=== PATIENT | female | born 1965 | race Asian ===

== ENCOUNTER 2016-09-06 12:49 | Emergency (ER) | payer MEDICAID, OTHER ==
[~2016-09-06] VITALS: Ht 154.9 cm; Wt 78.2 kg
[2016-09-06] MEDS ORDERED: IPRATROPIUM BROMIDE 0.5 MG/2.5 ML NEB SOLUTION NEB ONE (15:30)
[2016-09-06] MEDS ORDERED: ALBUTEROL SULFATE 2.5 MG/0.5 ML NEB SOLUTION NEB ONE (15:30)
[2016-09-06] MEDS ORDERED: ALBUTEROL SULFATE HFA 90 MCG/PUFF 8 GM INHALER IH ONE (17:00)
[2016-09-06 18:42] VITALS: BP 170/102
== END 2016-09-06 18:43 | disposition home or self-care (01) ==
LOC: EMS 12:56
DX: S05.12XA Contusion of eyeball and orbital tissues, left eye, initial encounter (principal); J45.901 Unspecified asthma with (acute) exacerbation; I10 Essential (primary) hypertension; W19.XXXA Unspecified fall, initial encounter; Y93.89 Activity, other specified; Y92.89 Other specified places as the place of occurrence of the external cause; Y99.8 Other external cause status
CPT/HCPCS: 70486; 94640; 99284; J7613; J3535

== ENCOUNTER 2017-11-26 20:34 | Inpatient (IN) | payer MEDICAID ==
[~2017-11-26] VITALS: Ht 154.9 cm; Wt 83.7 kg
[2017-11-26 21:03] LABS: BASOPHILS % (AUTO) 0.9 % (0.0-2.0); EOSINOPHILS % (AUTO) 4.1 % (1.0-6.0); HEMOGLOBIN 11.7 g/dL (12.0-16.0); LYMPHOCYTES # (AUTO) 3.5 K/uL (1.0-4.8); LYMPHOCYTES % (AUTO) 36.7 % (22.0-44.0); MEAN CORPUSCULAR HEMOGLOBIN 24.8 pg (26.0-34.0); MEAN CORPUSCULAR HGB CONC 32.5 G/dL (31.0-37.0); MEAN CORPUSCULAR VOLUME 76 fL (80-100); MONOCYTES # (AUTO) 0.6 K/uL (0.1-1.0); MONOCYTES % (AUTO) 6.2 % (2.0-9.0); NEUTROPHILS % (AUTO) 52.1 % (40.0-70.0); PLATELET COUNT (AUTO) 364 K/uL (150-450); RED BLOOD CELL COUNT(AUTO) 4.72 MIL/uL (4.00-5.20); RED CELL DISTRIBUTION WIDTH 18.7 % (11.5-14.5)
[2017-11-26 21:17] LABS: ANION GAP 10 mmol/L (8-16); CALCIUM, TOTAL 8.6 mg/dL (8.8-10.5); CARBON DIOXIDE 25 mmol/L (22-29); CHLORIDE 108 mmol/L (98-107); CREATININE 0.76 mg/dL (0.60-1.30); GLOMERULAR FILTR. RATE CALC > 60 mL/min (>60); GLUCOSE,RANDOM 87 mg/dL (70-110); POTASSIUM 3.3 mmol/L (3.5-5.1); SODIUM SERUM 143 mmol/L (136-145); UREA NITROGEN, BLOOD 17 mg/dL (7-18)
[2017-11-26 21:17] LABS: AMPHET/METH SCREEN,URINE NEGATIVE (NEGATIVE); BARBITURATE SCREEN, URINE NEGATIVE (NEGATIVE); BENZODIAZEPINES SCREEN,URINE NEGATIVE (NEGATIVE); CANNABINOID SCREEN,URINE NEGATIVE (NEGATIVE); COCAINE SCREEN,URINE NEGATIVE (NEGATIVE); METHADONE SCREEN, URINE NEGATIVE (NEGATIVE); OPIATE SCREEN,URINE NEGATIVE (NEGATIVE)
[2017-11-26 21:18] LABS: PHENCYCLIDINE SCREEN,URINE NEGATIVE (NEGATIVE)
[2017-11-26 21:23] LABS: ALANINE AMINOTRANSFERASE 39 U/L (12-78); ALBUMIN 3.9 g/dL (3.4-5.0); ALKALINE PHOSPHATASE 84 U/L (46-116); ASPARTATE AMINOTRANSFERASE 30 U/L (15-37); BILIRUBIN,TOTAL 0.2 mg/dL (0.1-1.0); TOTAL PROTEIN, SERUM 8.3 g/dL (6.4-8.2)
[2017-11-27] VITALS (8 sets, daily range): BP systolic 126–169; BP diastolic 82–105
[2017-11-27] MEDS ORDERED: DiphenhydrAMINE HCL 25 MG CAPSULE PO ONE (01:45)
[2017-11-27] MEDS ORDERED: ZOLPIDEM TARTRATE 10 MG TABLET PO PRN (02:45)
[2017-11-27] MEDS ORDERED: HALOPERIDOL 5 MG TABLET PO PRN (02:45)
[2017-11-27] MEDS ORDERED: LORazepam 2 MG TABLET PO PRN (02:45)
[2017-11-27] MEDS ORDERED: POTASSIUM CHLORIDE 20 MEQ ER TABLET PO ONE (03:15)
[2017-11-27] MEDS ORDERED: PNEUMOCOCCAL VACCINE POLYVALENT 0.5 ML VIAL [PPSV23] IM ONE (06:15)
[2017-11-27] MEDS: LISINOPRIL 20 MG TABLET PO SCH (08:57)
[2017-11-27] MEDS: ALBUTEROL SULFATE HFA 90 MCG/PUFF 8 GM INHALER IH SCH ×2 (08:58→16:22)
[2017-11-27] MEDS ORDERED: CloNIDine HCL 0.1 MG TABLET PO PRN (10:30)
[2017-11-27] MEDS ORDERED: ACETAMINOPHEN 325 MG TABLET PO PRN (12:00)
[2017-11-27] MEDS ORDERED: IBUPROFEN 400 MG TABLET PO PRN (12:00)
[2017-11-27] MEDS ORDERED: AmLODIPine BESYLATE 5 MG TABLET PO ONE (12:15)
[2017-11-28] VITALS: BP 132/74
[2017-11-28] MEDS ORDERED: ALBUTEROL SULFATE HFA 90 MCG/PUFF 8 GM INHALER IH PRN (07:00)
[2017-11-28] MEDS: LISINOPRIL 20 MG TABLET PO SCH (08:07)
[2017-11-28] MEDS: ALBUTEROL SULFATE HFA 90 MCG/PUFF 8 GM INHALER IH SCH (08:08)
[2017-11-28 08:22] VITALS: BP 124/84
[2017-11-28 08:45] VITALS: BP 124/84
[2017-11-28] MEDS ORDERED: AmLODIPine BESYLATE 5 MG TABLET PO SCH (09:00)
[2017-11-28 09:36] LABS: CHOL/HDL RATIO 2.7 (3.9-5.7); POTASSIUM 3.5 mmol/L (3.5-5.1); THYROID STIMULATING HORMONE 4.14 uIU/mL (0.36-3.74)
[2017-11-28] MEDS ORDERED: ALBU8HFA IH (10:47)
[2017-11-28] MEDS ORDERED: LISI-662 PO (10:47)
[2017-11-28] MEDS ORDERED: AMLO-511 PO (10:47)
== END 2017-11-28 13:30 | disposition home or self-care (01) | DRG 751 ==
LOC: EMS 20:35 → B2S 11-27 02:30
DX: F33.2 Major depressive disorder, recurrent severe without psychotic features (principal); R45.851 Suicidal ideations; I10 Essential (primary) hypertension; Z28.21 Immunization not carried out because of patient refusal; J45.909 Unspecified asthma, uncomplicated; E87.6 Hypokalemia; F10.20 Alcohol dependence, uncomplicated; D64.9 Anemia, unspecified; F19.10 Other psychoactive substance abuse, uncomplicated; Z79.899 Other long term (current) drug therapy; Z71.41 Alcohol abuse counseling and surveillance of alcoholic; Z71.51 Drug abuse counseling and surveillance of drug abuser
CPT/HCPCS: 84132; 84443; 90471; 99285; G0480; J3535